=== PATIENT | male | born 1955 | race Caucasian/White ===

== ENCOUNTER 2024-05-02 13:06 | Emergency (ER) | payer MEDICARE, SELFPAY ==
[2024-05-02] VITALS (7 sets, daily range): BP systolic 114–138; BP diastolic 66–102; BMI 26.5
[2024-05-02 14:00] LABS: % Basophils 0.7 % (0-2); % Eosinophils 1.3 % (0-6); % Immature Granulocytes 0.2 % (0-0.5); % Lymphocytes 25.2 % (20.5-51.1); % Monocytes 8.5 % (1.7-9.3); % Neutrophils 64.1 % (42.2-75.2); Absolute Basophils 0.1 10^3/uL (0-0.2); Absolute Eosinophils 0.1 10^3/uL (0-0.7); Absolute Lymphocytes 2.2 10^3/uL (1.2-3.4); Absolute Monocytes 0.7 10^3/uL (0.1-0.6); Absolute Neutrophils 5.5 10^3/uL (1.4-6.5); Hematocrit 47.1 % (39.0-52.0); Hemoglobin 15.8 g/dL (13.0-18.0); Mean Corp Hgb Conc. 33.5 g/dL (33.0-37.0); Mean Corpuscular Hgb 32.6 pg (27.0-31.0); Mean Corpuscular Volume 97.3 fL (80.0-94.0); Mean Platelet Volume 11.3 fL (7.4-10.4); Nucleated Red Blood Cells % 0 % (-); Platelet Count 168 10^3/uL (130-400); Red Blood Cell Count 4.84 10^6/uL (4.70-6.10); Red Cell Dist. Width 13.5 % (11.5-14.5); White Blood Cell Count 8.6 10^3/uL (4.8-10.8)
--- NOTE | 2024-05-02 14:08 | ED.GENMED ---
History of Present Illness
General
Chief Complaint: Fall
Source: patient
Exam Limitations: none
Time Seen by Provider: 05/02/24 13:48
Nursing documentation reviewed up to this point in time: agreed with
History of Present Illness
History of Present Illness:
Patient status post fall x 2 with syncope, while intoxicated yesterday afternoon, presents to ED from home accompanied by his , who found patient to be unstable on his feet along with slurred speech. Patient was evaluated at [facility]
yesterday after a syncopal episode, but signed out AGAINST MEDICAL ADVICE without any workup. Patient is complaining of frontal headache. Patient reports having taken aspirin 81 mg last night. Denies loss of sensation or weakness. Denies
difficulty with speech. Denies blurred vision. Denies dizziness. Denies chest pain or palpitations. Denies abdominal pain. Denies nausea or vomiting.
Review of Systems
Review of Systems
Allergies reviewed?: Yes
All Other Systems: ROS reviewed and negative except as documented in HPI and ROS
Constitutional: Reports no symptoms
EENT: Reports no symptoms
Respiratory: Reports no symptoms
Cardiac: Reports no symptoms
ABD/GI: Reports no symptoms
Musculoskeletal: Reports no symptoms
Skin: Reports no symptoms
Neurological: Reports headache and other (unstable gait with slurred speech)
Phy Exam
Physical Exam
Physical Exam:
Physical Exam
General: no apparent distress, not acutely ill. afebrile.
Head: nc/at. eomi
Neck: supple. no meningeal signs. diffuse lower cervical tenderness without obvious deformity
Heart: s1/s2 regular rate and rhythm, no murmur. equal radial pulses.
Lungs: no acute respiratory distress. clear bilaterally
Abdomen: normal bowel sounds. not tender.
Neuro: alert and oriented. no focal neurological deficits
Skin: no rash
Psychiatric: well kept. interactive and cooperative
Extremities: no edema. no calf tenderness.
Course
Orders/Labs/Results
Orders:
Orders
05/02/24 13:11
CT Head W/o Iv Contrast Urgent
Comment:
Reason For Exam: head injury
05/02/24 13:48
Electrocardiogram (*1) Urgent
Reason for Study: Other
Other Reason for Exam: Possible Stroke
Cardiac Monitoring- Treatment ONCE
IV Insert/Care/Rem.- Treatment PRN
Vital Signs As Directed
Frequency: Other
Weight As Directed
Frequency: Once
Comment: ZERO STRETCHER SCALE FOR ACCURATE WEIGHT
05/02/24 13:49
EKG- Treatment ONCE
05/02/24 13:50
Add On- LAB Urgent
Tests Added?: alcohol, magnesium
05/02/24 13:52
Alcohol Urgent
Complete Blood Count/With Diff Urgent
Comprehensive Metabolic Panel Urgent
Magnesium Urgent
Comment: ADD ON
PTT Urgent
Prothrombin Time Urgent
05/02/24 14:02
CT Cervical Spine W/o Iv Contr Urgent
Comment:
Reason For Exam: trauma
Abnormal Lab Results
05/02/24
13:52
MCV 97.3 H fL
(80.0-94.0)
MCH 32.6 H pg
(27.0-31.0)
MPV 11.3 H fL
(7.4-10.4)
Absolute Monos (auto) 0.7 H 10^3/uL
(0.1-0.6)
Chloride 108 H mmol/L
(98-107)
Glucose 100 H mg/dl
(70-99)
05/02/24 13:52
05/02/24 13:52
Vital Signs
Initial and Last Documented VS:
Initial Vital Signs
Temp Pulse Resp BP Pulse Ox
98.2 F 95 18 132/77 95
05/02/24 13:07 05/02/24 13:07 05/02/24 13:07 05/02/24 13:07 05/02/24 13:07
Last Documented Vital Signs
Temp Pulse Resp BP Pulse Ox
98.2 F 71 19 117/73 95
05/02/24 13:07 05/02/24 15:23 05/02/24 15:23 05/02/24 15:24 05/02/24 14:15
MDM/Problems Addressed
MDM/Problems Addressed:
CT head report noted and discussed with oncmoises neurosx, , who recommends patient to be transferred to trauma service.
Discussed with trauma attending @ () who agreed to accept transfer.
Transfer consent on the chart.
*Critical Care Note
Total Time (30-74mins, 75-104mins- exclusive of procedures): Not Applicable
ED Attending Note
-
Portions of this chart may have been created with voice recognition software.� Occasional wrong word or��sound alike� substitutions may have occurred due to the inherent limitations of voice recognition software.
Discharge Plan
Departure
Patient Disposition: Acute Care Hospital
Date of Disposition: 05/02/24
Time of Disposition: 14:23
Discharge Problem:
Intraparenchymal hemorrhage of brain
Prescriptions:
No Action
lamotrigine 150 mg Tablet
150 mg PO DAILY
aspirin 325 mg Tablet
325 mg PO DAILYPRN PRN (Reason: headache/muscle ache)
clonazepam 1 mg Tablet
1 mg PO TIDPRN PRN (Reason: anxiety)
Theragen Tablet
1 tab PO DAILY
timolol 0.5 % Drops
1 drp BOTH EYES BID
methimazole 5 mg Tablet
2.5 mg PO DAILY
rosuvastatin 40 mg Tablet
40 mg PO DAILY
duloxetine 60 mg Capsule,Delayed Release(Dr/Ec)
60 mg PO DAILY
vitamin B complex Tablet
1 tab PO DAILY
turmeric 400 mg Capsule
400 mg PO DAILY
Fish Oil capsule
2 cap PO DAILY
Referrals:
Johny Zurita MD [Family Provider] -
Hospital Transfer
Other hospital: [facility]
I certify that the patient requires transfer: Yes
Discussed case with accepting physician:
Reason for transfer: higher level of care, medical necessity, availability of service and specialties available
Interventions
Interventions:
*Risk Screen - Suicide Last Done: 05/02/24 13:07
*General Assessment Last Done: 05/02/24 13:07
*Neglect/Abuse Screening Last Done: 05/02/24 13:07
ED- Fall Risk Assessment Last Done: 05/02/24 15:35
*ED COVID-19 Vaccine History Last Done: 05/02/24 13:07
*Nursing Disposition Last Done: 05/02/24 15:35
ED-Musculoskeletal Assessment Last Done: 05/02/24 13:54
ED- Neurological Assessment Last Done: 05/02/24 13:54
ED-Skin Assessment Last Done: 05/02/24 13:54
Discharge Date and Time
Discharge Date/Time: 05/02/24 15:35
Print Language: PERSIAN
[2024-05-02 14:15] LABS: ALT (SGPT) 24 U/L (0-50); AST (SGOT) 27 U/L (17-59); Albumin 4.4 g/dl (3.5-5.0); Alkaline Phosphatase 77 U/L (38-126); Blood Urea Nitrogen 12 mg/dl (9-20); Carbon Dioxide 25 mmol/L (22-30); Chloride 108 mmol/L (98-107); Estimated Creatinine Clearance 76 ml/min; Glucose 100 mg/dl (70-99); Magnesium 2.3 mg/dl (1.6-2.3); Potassium 4.1 mmol/L (3.5-5.1); Sodium 140 mmol/L (135-145); Total Bilirubin 0.7 mg/dl (0.2-1.3); Total Protein 7.3 g/dl (6.3-8.2); eGFR > 60.00
[2024-05-02 14:22] LABS: Alcohol None Detected
[2024-05-02 14:25] LABS: INR 1.07
== END 2024-05-02 15:35 | disposition short-term general hospital (02) ==
LOC: EMR 13:06
PROVIDERS: EMERGENCY PHYSICIAN Emergency Medicine; FAMILY PHYSICIAN Family Medicine
DX: I61.8 Other nontraumatic intracerebral hemorrhage (principal); R55 Syncope and collapse; R47.81 Slurred speech; R26.81 Unsteadiness on feet; R51.9 Headache, unspecified
CPT/HCPCS: 99284; 70450; 72125; 80053; 82077; 83735; 85025; 85610; 85730; 93005

== ENCOUNTER → 2024-11-29 15:02 | Outpatient (REF) | payer MEDICARE, SELFPAY | LOC: HWRAD 15:02 | PROVIDERS: ATTENDING PHYSICIAN Family Medicine | DX: F17.210 Nicotine dependence, cigarettes, uncomplicated (principal) | CPT/HCPCS: 71271 ==

== ENCOUNTER → 2025-05-23 14:11 | Outpatient (REF) | payer MEDICARE, SELFPAY | LOC: RAD 14:11 | PROVIDERS: ATTENDING PHYSICIAN Nurse Practitioner Family; FAMILY PHYSICIAN Family Medicine | DX: E05.90 Thyrotoxicosis, unspecified without thyrotoxic crisis or storm (principal) | CPT/HCPCS: 76536 ==

== ENCOUNTER → 2025-10-01 13:48 | Outpatient (REF) | payer MEDICARE, SELFPAY | LOC: RAD 13:48 | PROVIDERS: ATTENDING PHYSICIAN Family Medicine | DX: M25.561 Pain in right knee (principal) | CPT/HCPCS: 73564 ==